=== PATIENT | female | born 1950 | race Caucasian/White ===

== ENCOUNTER 2016-10-13 08:40 | Emergency (ER) | payer MEDICARE, OTHER ==
[~2016-10-13] VITALS: Ht 162.6 cm; Wt 52.2 kg
[~2016-10-13 08:40] MED LIST: ONDANSETRON ODT4 MG PO; SOMA350 MG PO
[2016-10-13 09:00] VITALS: BP 107/88
[2016-10-13] MEDS ORDERED: Bacitracin Oint UD TOPIC ONE (09:15)
[2016-10-13] MEDS ORDERED: Bactrim DS (160mg/800mg) tab ORAL ONE (09:15)
[2016-10-13] MEDS ORDERED: TdaP Vaccine 0.5ml Syr IM ONE (09:15)
--- NOTE | 2016-10-13 09:36 | Emergency Room Report ---
History of Present Illness General Chief Complaint: Upper Respiratory Illness Source: Patient Present Illness [facility] The patient presents with R facial swelling and pain and a cough that's been constant for several weeks. She just returned from the [facility]. She saw her eye doctor who prescribes Augmentin for swelling and redness underneath her right eye. 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 She was suffering from multiple mosquito bites and thinks that this maybe related to mosquito bite. In addition to that she has cramps in her feet and feels is related to poor circulation. The cough is nonproductive. She does not hear herself wheezing. She denies any chest pain. Last year she had an episode of bronchitis last 6 months to year. She has swelling R below eye. PMD prescribed augmentin. Not getting better. She has chronic changes post trauma of R eye. No change in vision. She denies pain. Allergies: Uncoded Allergies: NKA (Allergy, 07/16/12) Patient History Past Medical History: see triage record Pertinent Family History: other - maxillary reconstruction and pelvic fx Social History: Denies: smoking Social History Narrative recent trip to [facility] Reviewed Nursing Documentation: PMH: Agreed, PSxH: Agreed Nursing Documentation-PM Past Medical History: No Stated History Hx Hypertension: Yes Hx Gastrointestinal Problems: Yes - IBS Review of Systems All Other Systems: negative except mentioned in HPI Physical Exam Vital Signs Date Time Temp Pulse Resp B/P Pulse Ox O2 Delivery O2 Flow Rate FiO2 10/13/16 08:54 98.4 80 14 104/74 97 Room Air Sp02 EP Interpretation: reviewed, normal General Appearance: well appearing, no apparent distress, GCS 15 Head: normocephalic Eyes: bilateral eye PERRL, bilateral eye other - r proptosis and facial weakness ENT: moist mucus membranes Neck: supple Respiratory: lungs clear, normal breath sounds Cardiovascular #1: regular rate, rhythm Cardiovascular #2: 2+ radial (R) Gastrointestinal: normal inspection, normal bowel sounds, non tender, no mass, non-distended Musculoskeletal: back normal, gait/station normal, normal range of motion Neurologic: alert, oriented x3, medical claims assistant III-XII nml as tested - R periorbital weakness (chronic) Psychiatric: mood/affect normal Skin: normal inspection, warm/dry, other - R infraorbital swelling with some erythema and min eschar Medical Decision Making Diagnostic Impression: Primary Impression: MRSA (methicillin resistant Staphylococcus aureus) infection Additional Impression: Bronchitis ER Course Patient with 2 problems: R infection below eye and also chronic cough. There is no wheezing and she states she has never used inhaler. Clinically doubt pneumonia, but CXR indicated. Lungs are clear and she has never used bronchodilator (a consideration). Being treated with ineffective antibiotics, will start bactrim and give tetanus. EKG and CXR negative. Labs unremarkable. Sed rate normal. Circulation normal. Patient improved with treatment. If not better, consider bronchodilator. Patient stable for outpatient observation and treatment. Laboratory Tests Test 10/13/16 09:25 White Blood Count 5.6 K/UL (4.8-10.8) Red Blood Count 4.35 M/UL (4.20-5.40) Hemoglobin 15.0 G/DL (12.0-16.0) Hematocrit 41.1 % (37.0-47.0) Mean Corpuscular Volume 95 FL (80-99) Mean Corpuscular Hemoglobin 34.5 PG (27.0-31.0) H Mean Corpuscular Hemoglobin Concent 36.5 G/DL (32.0-36.0) H Red Cell Distribution Width 11.1 % (11.6-14.8) L Platelet Count 287 K/UL (150-450) Mean Platelet Volume 6.2 FL (6.5-10.1) L Neutrophils (%) (Auto) 58.4 % (45.0-75.0) Lymphocytes (%) (Auto) 26.5 % (20.0-45.0) Monocytes (%) (Auto) 12.0 % (1.0-10.0) H Eosinophils (%) (Auto) 1.4 % (0.0-3.0) Basophils (%) (Auto) 1.6 % (0.0-2.0) Erythrocyte Sedimentation Rate 7 MM/HR (0-30) Sodium Level 141 mEQ/L (135-145) Potassium Level 4.5 mEQ/L (3.4-4.9) Chloride Level 98 mEQ/L (98-107) Carbon Dioxide Level 30 mEQ/L (20-30) Anion Gap 13 (5-15) Blood Urea Nitrogen 11 mg/dL (7-23) Creatinine 0.8 mg/dL (0.5-0.9) Estimate Glomerular Filtration Rate > 60 mL/min (>60) Glucose Level 92 mg/dL (74-106) Calcium Level 9.8 mg/dL (8.6-10.2) Magnesium Level 1.9 mg/dL (1.7-2.5) Total Bilirubin 0.6 mg/dL (0.0-1.2) Aspartate Amino Transferase (AST) 25 U/L (5-40) Alanine Aminotransferase (ALT) 14 U/L (3-33) Alkaline Phosphatase 57 U/L (35-104) Total Creatine Kinase 86 U/L (26-140) Troponin I < 0.30 ng/mL (<=0.30) Pro-B-Type Natriuretic Peptide 78 pg/mL (0-125) Total Protein 6.8 g/dL (6.6-8.7) Albumin 4.4 g/dL (3.5-5.2) Globulin 2.4 g/dL Albumin/Globulin Ratio 1.8 (1.0-2.7) EKG Diagnostic Results Rate: normal Rhythm: NSR ST Segments: no acute changes Rhythm Strip Diag. Results EP Interpretation: yes Rhythm: NSR, no PVC's, no ectopy Chest X-Ray Diagnostic Results EP Interpretation: Yes Findings: no consolidation, no effusion, no pneumothorax, no acute cardiopulmonary disease Number of Views: 1 Last Vital Signs Date Time Temp Pulse Resp B/P Pulse Ox O2 Delivery O2 Flow Rate FiO2 10/13/16 11:45 98.4 75 16 110/75 99 Room Air Status: improved Disposition: HOME, SELF-CARE Condition: Improved Scripts Bacitracin (Bacitracin) 28.4 Gm Oint...g. 1 APPLIC TOPIC BID, #10 GM Prov: Berny Lauren M.D. 10/13/16 Trimethoprim/Sulfamethoxazole 160/800* (BACTRIM DS TABLET*) 1 Each Tablet 1 TAB ORAL Q12H, #14 TAB 0 Refills Prov: Berny Lauren M.D. 10/13/16 Berny Lauren M.D. October 13, 2016 09:36
[2016-10-13 09:46] LABS: BASOPHILS % (AUTO) 1.6 % (0.0-2.0); EOSINOPHILS % (AUTO) 1.4 % (0.0-3.0); LYMPHOCYTES % (AUTO) 26.5 % (20.0-45.0); MEAN CORPUSCULAR HEMOGLOBIN 34.5 PG (27.0-31.0); MEAN CORPUSCULAR HGB CONC 36.5 G/DL (32.0-36.0); MEAN CORPUSCULAR VOLUME 95 FL (80-99); MEAN PLATELET VOLUME 6.2 FL (6.5-10.1); NEUTROPHILS % (AUTO) 58.4 % (45.0-75.0); PLATELET COUNT 287 K/UL (150-450); RED BLOOD COUNT 4.35 M/UL (4.20-5.40); RED CELL DISTRIBUTION WIDTH 11.1 % (11.6-14.8); WHITE BLOOD COUNT 5.6 K/UL (4.8-10.8)
[2016-10-13 09:57] LABS: TROPONIN I < 0.30 ng/mL (<=0.30)
[2016-10-13 10:00] LABS: ALANINE AMINOTRANSFERASE 14 U/L (3-33); ALBUMIN/GLOBULIN RATIO 1.8 (1.0-2.7); ANION GAP 13 (5-15); ASPARTATE AMINO TRANSFERASE 25 U/L (5-40); CALCIUM 9.8 mg/dL (8.6-10.2); CARBON DIOXIDE 30 mEQ/L (20-30); CHLORIDE 98 mEQ/L (98-107); CREATININE 0.8 mg/dL (0.5-0.9); GLOMERULAR FILTRATION RATE > 60 mL/min (>60); HEMOLYSIS 7; POTASSIUM 4.5 mEQ/L (3.4-4.9); SODIUM 141 mEQ/L (135-145); TOTAL PROTEIN 6.8 g/dL (6.6-8.7)
--- NOTE | 2016-10-13 10:14 | Diagnostic Imaging Report ---
Indication: Chest Pain Comparison: None A single view chest radiograph was obtained. Findings: Cardiomediastinal appearance is within normal limits for age. Pulmonary vascularity is appropriate. The diaphragmatic contour is smooth and costophrenic angles are sharp. No pleural effusions are identified. The bones are osteopenic. Impression: No acute findings
[2016-10-13 11:30] VITALS: BP 110/75
[2016-10-13] MEDS ORDERED: BACTRIM DS TAB1 EAC1 ORAL (11:36)
[2016-10-13] MEDS ORDERED: BACITRACIN15 GM TOPIC (11:36)
[2016-10-13 11:45] VITALS: BP 110/75
--- NOTE | 2016-10-15 17:04 | Cardiology Report ---
APPROVED REPORT EKG Measurement Heart [id number] Normal sinus rhythm Normal ECG
== END 2016-10-13 11:45 | disposition home or self-care (01) ==
LOC: EMR 10:12
DX: B95.62 Methicillin resistant Staphylococcus aureus infection as the cause of diseases classified elsewhere (principal); H44.001 Unspecified purulent endophthalmitis, right eye; J40 Bronchitis, not specified as acute or chronic; I10 Essential (primary) hypertension; K58.9 Irritable bowel syndrome, unspecified
CPT/HCPCS: 36415; 71010; 80053; 82550; 83735; 83880; 84484; 85025; 85651; 90471; 90715; 93005; 96372; 99284

== ENCOUNTER 2016-10-25 20:17 | Emergency (ER) | payer MEDICARE ==
[~2016-10-25] VITALS: Ht 162.6 cm; Wt 52.2 kg
[~2016-10-25 20:17] MED LIST changes: +BACITRACIN15 GM TOPIC; +BACTRIM DS TAB1 EAC1 ORAL
--- NOTE | 2016-10-25 21:10 | Emergency Room Report ---
History of Present Illness General Chief Complaint: Upper Respiratory Illness Source: Patient Present Illness HPI Is a 66-year-old female with history hypertension. She presents with a cough and spinning of whitish sputum for the last couple months. She was here last week and had workup that was negative. She was placed on antibiotics. Not getting better. Usually occur at night. Occasional cough. No fever or chills. No nausea no vomiting. No chest pain. Has not seen a primary care Dr. Allergies: Coded Allergies: No Known Allergies (Unverified , 10/25/16) Patient History Past Medical History: see triage record, old chart reviewed, HTN Past Surgical History: other Pertinent Family History: none Social History: Denies: smoking Last Menstrual Period: Hysterectomy Now: No Immunizations: other Reviewed Nursing Documentation: PMH: Agreed, PSxH: Agreed Nursing Documentation-PMH Past Medical History: No History, Except For Hx Hypertension: Yes Hx Gastrointestinal Problems: Yes - IBS Review of Systems Eye: Denies: blurred vision, eye pain ENT: Denies: ear pain, nose congestion, throat swelling Respiratory: Denies: cough, shortness of breath Cardiovascular: Denies: chest pain, palpitations Gastrointestinal: Denies: abdominal pain, diarrhea, nausea, vomiting Musculoskeletal: Denies: back pain, joint pain Skin: Denies: rash Neurological: Denies: headache, numbness Endocrine: Denies: increased thirst, increased urine Hematologic/Lymphatic: Denies: easy bruising All Other Systems: negative except mentioned in HPI Physical Exam Vital Signs Date Time Temp Pulse Resp B/P Pulse Ox O2 Delivery O2 Flow Rate FiO2 10/25/16 20:22 98.1 76 16 129/75 100 Room Air vitals normal Sp02 EP Interpretation: reviewed, normal General Appearance: well appearing, no apparent distress, alert Head: normocephalic, atraumatic Eyes: bilateral eye EOMI, bilateral eye PERRL ENT: hearing grossly normal, normal pharynx Neck: full range of motion, supple, no meningismus Respiratory: chest non-tender, lungs clear, normal breath sounds Cardiovascular #1: regular rate, rhythm, no murmur Gastrointestinal: normal bowel sounds, non tender, no mass, no organomegaly, no bruit, non-distended Musculoskeletal: back normal, gait/station normal, normal range of motion Psychiatric: mood/affect normal Skin: warm/dry Medical Decision Making Diagnostic Impression: Primary Impression: Upper respiratory symptom ER Course Patient presents with symptom it may be more allergic than Dr. infection. X- ray of the chest is unremarkable. Labs unremarkable. We'll treat with antihistamine. Chest X-Ray Diagnostic Results Chest X-Ray Ordered: No Last Vital Signs Date Time Temp Pulse Resp B/P Pulse Ox O2 Delivery O2 Flow Rate FiO2 10/25/16 20:38 76 16 Room Air 10/25/16 20:22 98.1 129/75 100 Status: unchanged Disposition: HOME, SELF-CARE Condition: Stable Scripts Loratadine (CLARITIN) 10 Mg Tablet 10 MG ORAL DAILY, #30 TAB Prov: LEONELA AGUIRRE M.D. 10/25/16 Additional Instructions: Followup with your doctor 7 days. You may need a referral to see a specialist. Return if symptom worsen. LEONELA AGUIRRE M.D. Oct 25, 2016 21:10
[2016-10-25] MEDS ORDERED: CLARITIN10 MG ORAL (21:13)
[2016-10-25 21:17] VITALS: BP 129/75
== END 2016-10-25 21:17 | disposition home or self-care (01) ==
LOC: EMR 20:35
DX: J06.9 Acute upper respiratory infection, unspecified (principal); I10 Essential (primary) hypertension
CPT/HCPCS: 99283

== ENCOUNTER 2016-12-21 22:16 | Emergency (ER) | payer MEDICARE ==
[~2016-12-21] VITALS: Ht 162.6 cm; Wt 52.2 kg
[~2016-12-21 22:16] MED LIST changes: +CLARITIN10 MG ORAL
[2016-12-21] MEDS ORDERED: VIBRAMYCIN100 MG ORAL (22:35)
[2016-12-21 23:26] VITALS: BP_SYST 133; BP_SYST 141; BP_DIAS 82; BP_DIAS 89
--- NOTE | 2016-12-22 00:16 | Emergency Room Report ---
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 States nothing acute as far as "pus drainage" but shows me clear fluid drainage from eye on tissue paper Denies blurry, change of vision, headache, pain with EOMI, redness around eye Has been here multiple times for previous Was given Bactrim in september by ERMD Allergies: Coded Allergies: No Known Allergies (Unverified , 10/25/16) Patient History Past Medical History: see triage record Past Surgical History: other - "eye surgery" Pertinent Family History: none Social History: Denies: alcohol use, drug use, smoking Now: No Immunizations: UTD Reviewed Nursing Documentation: PMH: Agreed, PSxH: Agreed Nursing Documentation-PMH Past Medical History: No History, Except For Hx Hypertension: Yes Hx Gastrointestinal Problems: Yes - IBS Review of Systems All Other Systems: negative except mentioned in HPI Physical Exam Vital Signs Date Time Temp Pulse Resp B/P Pulse Ox O2 Delivery O2 Flow Rate FiO2 12/21/16 22:29 97.9 76 16 133/89 100 Room Air Sp02 EP Interpretation: reviewed, normal General Appearance: normal inspection, well appearing, no apparent distress, alert, GCS 15, non-toxic Head: normocephalic, atraumatic Eyes: bilateral eye PERRL, bilateral eye other - Obvious post-op changes to right eye: there is an obvious lag of movement of right eye on eye movement. There is some proptosis and deformity of right orbit. Clear fluid expressed from a post-op wound site? below right eye, that is forcibly expressed by patient pushing on it. No erythema or orbit. ENT: normal ENT inspection, hearing grossly normal, normal voice Neck: normal inspection, full range of motion, supple, no bony tend Respiratory: normal inspection, lungs clear, normal breath sounds, no respiratory distress, no retraction, no wheezing Cardiovascular #1: regular rate, rhythm, no edema Gastrointestinal: normal inspection, normal bowel sounds, non tender, soft, no guarding, no hernia Genitourinary: no CVA tenderness Musculoskeletal: normal inspection, back normal, normal range of motion, Kasie' s Sign negative Neurologic: normal inspection, alert, oriented x3, responsive, emergency medicine medical director III-XII nml as tested, motor strength/tone normal, speech normal Psychiatric: normal inspection, judgement/insight normal, mood/affect normal Skin: normal inspection, normal color, no rash Medical Decision Making Diagnostic Impression: Primary Impression: Referral needed Additional Impression: Eye problem ER Course Chronic right eye infection? - VSS. Afebrile. - No acute vision changes - Low suspicion for orbital cellulitis as vitals stable, afebrile, no pain with EOM, patient has had this for years - Already on Doxy by ID - Already being evaluated by Opth[facility] - Encouraged compliance with Doxy - Also requesting PMD referral which was given DC home Last Vital Signs Date Time Temp Pulse Resp B/P Pulse Ox O2 Delivery O2 Flow Rate FiO2 12/21/16 23:26 97.9 63 16 141/82 100 Room Air Status: improved Disposition: HOME, SELF-CARE Condition: Improved Additional Instructions: - Continue taking Doxycycline as prescribed by infectious disease specialist - Call Dr Ragland for primary care referral JASWANT KLEIN M.D. Dec 22, 2016 00:16
== END 2016-12-21 23:27 | disposition home or self-care (01) ==
LOC: EMR 22:52
DX: H57.8 Other specified disorders of eye and adnexa (principal); I10 Essential (primary) hypertension
CPT/HCPCS: 99282

== ENCOUNTER 2017-07-03 22:19 | Emergency (ER) | payer MEDICARE ==
[~2017-07-03] VITALS: Ht 160 cm; Wt 53.1 kg
[~2017-07-03 22:19] MED LIST changes: +VIBRAMYCIN100 MG ORAL
[2017-07-03 22:35] VITALS: BP 127/68
[2017-07-03] MEDS ORDERED: Albuterol/Ipratropium 3ml neb HHN ONE (23:00)
[2017-07-03 23:15] VITALS: BP 128/72
--- NOTE | 2017-07-03 23:17 | Emergency Room Report ---
History of Present Illness General Chief Complaint: Flu Like Symptoms Source: Patient Present Illness HPI Is a 66-year-old female with no past medical history. She presents with chief complaint of feeling sick with coughing congestion since May. We'll get better and it back again. Coughing is to of phlegm. She went to urgent care a month ago and given cough medicine is not helping. No fever or chills. No nausea no vomiting. Does have congestion and hoarseness of her voice. She's not a smoker. Allergies: Coded Allergies: No Known Allergies (Unverified , 10/25/16) Patient History Past Medical History: see triage record, old chart reviewed Past Surgical History: other Social History: Reports: smoking Last Menstrual Period: NA Now: No Immunizations: other Reviewed Nursing Documentation: PMH: Agreed, PSxH: Agreed Nursing Documentation-PMH Hx Hypertension: Yes Hx Gastrointestinal Problems: Yes - IBS Review of Systems Eye: Denies: eye pain, blurred vision ENT: Reports: nose congestion, Denies: ear pain, throat swelling Respiratory: Reports: cough, shortness of breath Cardiovascular: Denies: chest pain, palpitations Gastrointestinal: Denies: abdominal pain, diarrhea, nausea, vomiting Musculoskeletal: Denies: back pain, joint pain Skin: Denies: rash Neurological: Denies: headache, numbness Endocrine: Denies: increased thirst, increased urine Hematologic/Lymphatic: Denies: easy bruising All Other Systems: negative except mentioned in HPI Physical Exam Vital Signs Date Time Temp Pulse Resp B/P (MAP) Pulse Ox O2 Delivery O2 Flow Rate FiO2 07/03/17 22:29 98.2 85 20 132/86 99 Room Air 98.2 07/03/17 22:59 21 vitals normal Sp02 EP Interpretation: reviewed, normal General Appearance: well appearing, no apparent distress, alert Head: normocephalic, atraumatic Eyes: bilateral eye PERRL, bilateral eye EOMI ENT: hearing grossly normal, normal pharynx Neck: full range of motion, supple, no meningismus Respiratory: chest non-tender, lungs clear, normal breath sounds, other - coughing with inspiration Cardiovascular #1: regular rate, rhythm, no murmur Gastrointestinal: normal bowel sounds, non tender, no mass, no organomegaly, no bruit, non-distended Musculoskeletal: back normal, gait/station normal, normal range of motion Psychiatric: mood/affect normal Skin: warm/dry Medical Decision Making Diagnostic Impression: Primary Impression: Upper respiratory infection Qualified Codes: J06.9 - Acute upper respiratory infection, unspecified Additional Impression: Atypical pneumonia ER Course Patient present with an upper respiratory infection his been ongoing for about a month now. She may have an atypical pneumonia. Probably initially started as a viral infection that was secondary bacterial infection. We'll discharge home with antibiotics. She felt better after breathing treatment. Chest X-Ray Diagnostic Results Chest X-Ray Diagnostic Results : Chest X-Ray Ordered: Yes # of Views/Limited/Complete: 1 View Indication: Shortness of Breath EP Interpretation: Yes Interpretation: no consolidation, no effusion, no pneumothorax, no acute cardiopulmonary disease Impression: No acute disease Electronically Signed by: Real Henderson MD Last Vital Signs Date Time Temp Pulse Resp B/P (MAP) Pulse Ox O2 Delivery O2 Flow Rate FiO2 07/03/17 22:59 80 22 100 Room Air 21 07/03/17 22:35 98.5 127/68 98.5 Status: improved Disposition: HOME, SELF-CARE Condition: Stable Scripts Azithromycin* (ZITHROMAX*) 250 Mg Tablet 250 MG ORAL DAILY, #6 TAB 0 Refills Take two tablets by mouth today, then take one tablet by mouth daily for four days Prov: REAL HENDERSON M.D. 07/03/17 Prednisone* (PREDNISONE*) 20 Mg Tablet 60 MG ORAL DAILY, #12 TAB Prov: REAL HENDERSON M.D. 07/03/17 Albuterol Sulfate* (ALBUTEROL SULFATE MDI*) 8.5 Gm Hfa.aer.ad 2 PUFF INH Q4H Y for cough/wheezing, #1 EA 0 Refills Prov: REAL HENDERSON M.D. 07/03/17 Additional Instructions: Followup with your DrLashonda in 7 days. Return if worse. REAL HENDERSON M.D. Jul 03, 2017 23:16
[2017-07-03] MEDS ORDERED: PREDNISONE20 MG ORAL (23:20)
[2017-07-03] MEDS ORDERED: ALBUTEROL SULF8.5 GM INH (23:20)
[2017-07-03] MEDS ORDERED: AZITHROMYCIN250 MG ORAL (23:20)
[2017-07-03 23:28] VITALS: BP 128/72
--- NOTE | 2017-07-04 11:02 | Diagnostic Imaging Report ---
Indication: Dyspnea Comparison: 10/13/2016 A single view chest radiograph was obtained. Findings: Cardiomediastinal appearance is within normal limits for age. Pulmonary vascularity is appropriate. The diaphragmatic contour is smooth and costophrenic angles are sharp. No pleural effusions are identified. The bones are osteopenic. Impression: No acute findings
== END 2017-07-03 23:30 | disposition home or self-care (01) ==
LOC: EMR 23:25
DX: J18.9 Pneumonia, unspecified organism (principal); J06.9 Acute upper respiratory infection, unspecified; I10 Essential (primary) hypertension; K58.9 Irritable bowel syndrome, unspecified; F17.200 Nicotine dependence, unspecified, uncomplicated
CPT/HCPCS: 71045; 94640; 99284; J7512; J7620

== ENCOUNTER 2017-08-03 06:39 | Emergency (ER) | payer MEDICARE ==
[~2017-08-03] VITALS: Ht 160 cm; Wt 54.4 kg
[~2017-08-03 06:39] MED LIST changes: +ALBUTEROL SULF8.5 GM INH; +AZITHROMYCIN250 MG ORAL; +PREDNISONE20 MG ORAL
--- NOTE | 2017-08-03 06:55 | Emergency Room Report ---
History of Present Illness General Chief Complaint: Chest Pain Source: Patient Present Illness HPI Patient is 67-year-old female presented after increased cough. The patient recently finished a course of antibiotics.The patient reported having intermittent pain which she describes as a pressure sensation. She had associated cough. She reports having increased nasal congestion. She denies smoking. She reports having a generalized weakness. Allergies: Coded Allergies: No Known Allergies (Unverified , 10/25/16) Patient History Past Medical History: see triage record Nursing Documentation-PMH Hx Hypertension: Yes Hx Gastrointestinal Problems: Yes - IBS Review of Systems All Other Systems: negative except mentioned in HPI Physical Exam Vital Signs Date Time Temp Pulse Resp B/P (MAP) Pulse Ox O2 Delivery O2 Flow Rate FiO2 08/03/17 06:43 97.7 75 16 136/83 98 Room Air 97.7 Sp02 EP Interpretation: reviewed, normal General Appearance: normal inspection, well appearing, no apparent distress, alert, GCS 15 Head: atraumatic Eyes: bilateral eye other - disconjugate gaze left eye ptosis ENT: normal ENT inspection, hearing grossly normal, normal voice Neck: normal inspection, full range of motion, supple, no bony tend Respiratory: normal inspection, no respiratory distress, no retraction, speaking full sentences, wheezing Cardiovascular #1: regular rate, rhythm, no edema Gastrointestinal: normal inspection, normal bowel sounds, non tender, soft, no guarding, no hernia Genitourinary: no CVA tenderness Musculoskeletal: normal inspection, back normal, normal range of motion Neurologic: normal inspection, alert, oriented x3, responsive, garment form assembler III-XII nml as tested, speech normal Psychiatric: normal inspection, judgement/insight normal, mood/affect normal Skin: normal inspection, normal color, no rash Medical Decision Making Diagnostic Impression: Primary Impression: Generalized weakness Additional Impression: Hyperbilirubinemia ER Course Patient presented for chest pain. Differential diagnosis included but was not limited to acute coronary syndrome, pulmonary embolism, pneumonia, aortic dissection, shingles, pneumothorax, aortic dissection, esophageal rupture, pericarditis. Patient recent diagnosis of pneumonia.Laboratory testing was notable for elevated bilirubin level. The patient was noted to have negative troponin as well as normal B-type natriuretic peptide. Chest x-ray was unremarkable. The patient denies any leg pain or swelling. She denies any exertional dyspnea. CT of abdomen and pelvis was ordered to evaluate for possible pancreatic head mass.CT of the abdomen pelvis read by radiology showed multiple liver cysts without any evidence of acute obstruction there is questionable hiatal hernia. The patient declined admission for further workup of chest pain. The patient was advised to follow-up with primary care physician for further evaluation of elevated monocyte count. She advised that she needed further outpatient workup including cardiology. The patient is advised to follow up with primary care doctor in 1-2 days. Patient is advised to return if any worsening condition or if any changes in status that are concerning. This report is dictated with [employer] sales order clerk software which may occasionally lead to discrepancies related to use of this software. Labs Test 08/03/17 07:00 White Blood Count 5.9 K/UL (4.8-10.8) Red Blood Count 4.83 M/UL (4.20-5.40) Hemoglobin 15.5 G/DL (12.0-16.0) Hematocrit 45.5 % (37.0-47.0) Mean Corpuscular Volume 94 FL (80-99) Mean Corpuscular Hemoglobin 32.0 PG (27.0-31.0) Mean Corpuscular Hemoglobin Concent 34.0 G/DL (32.0-36.0) Red Cell Distribution Width 11.4 % (11.6-14.8) Platelet Count 298 K/UL (150-450) Mean Platelet Volume 6.5 FL (6.5-10.1) Neutrophils (%) (Auto) 49.4 % (45.0-75.0) Lymphocytes (%) (Auto) 32.0 % (20.0-45.0) Monocytes (%) (Auto) 13.1 % (1.0-10.0) Eosinophils (%) (Auto) 4.0 % (0.0-3.0) Basophils (%) (Auto) 1.6 % (0.0-2.0) Sodium Level 143 MMOL/L (136-145) Potassium Level 4.3 MMOL/L (3.5-5.1) Chloride Level 107 MMOL/L (98-107) Carbon Dioxide Level 31 MMOL/L (21-32) Anion Gap 5 mmol/L (5-15) Blood Urea Nitrogen 13 mg/dL (7-18) Creatinine 0.9 MG/DL (0.55-1.30) Estimat Glomerular Filtration Rate > 60 mL/min (>60) Glucose Level 109 MG/DL (74-106) Calcium Level 8.9 MG/DL (8.5-10.1) Total Bilirubin 1.9 MG/DL (0.2-1.0) Direct Bilirubin 0.3 MG/DL (0.0-0.3) Aspartate Amino Transf (AST/SGOT) 26 U/L (15-37) Alanine Aminotransferase (ALT/SGPT) 32 U/L (12-78) Alkaline Phosphatase 67 U/L (46-116) Total Creatine Kinase 143 U/L (26-308) Creatine Kinase MB 2.0 NG/ML (0.0-3.6) Creatine Kinase MB Relative Index 1.3 Troponin I 0.000 ng/mL (0.000-0.056) Pro-B-Type Natriuretic Peptide 25 pg/mL (0-125) Total Protein 7.0 G/DL (6.4-8.2) Albumin 3.8 G/DL (3.4-5.0) Globulin 3.2 g/dL Albumin/Globulin Ratio 1.2 (1.0-2.7) EKG Diagnostic Results Rate: normal - 73 Rhythm: NSR ST Segments: no acute changes Rhythm Strip Diag. Results EP Interpretation: yes Rhythm: NSR, no PVC's, no ectopy Last Vital Signs Date Time Temp Pulse Resp B/P (MAP) Pulse Ox O2 Delivery O2 Flow Rate FiO2 08/03/17 06:43 97.7 75 16 136/83 98 Room Air 97.7 Status: improved Disposition: HOME, SELF-CARE Condition: Stable Scripts Prednisone* (PREDNISONE*) 20 Mg Tablet 40 MG ORAL DAILY, #10 TAB Prov: Pedro Pablo Sheridan 08/03/17 Albuterol Sulfate* (ALBUTEROL SULFATE MDI*) 8.5 Gm Hfa.aer.ad 2 PUFF INH Q4H Y for cough/wheezing, #1 EA 0 Refills Prov: Pedro Pablo Sheridan 08/03/17 Pedro Pablo Sheridan Aug 03, 2017 06:55
[2017-08-03] MEDS ORDERED: Albuterol/Ipratropium 3ml neb HHN ONE (07:00)
[2017-08-03] MEDS ORDERED: Albuterol ud Inhalation HHN ONE (07:00)
[2017-08-03] MEDS ORDERED: Sodium Chloride 500ML 500 ML IV ONE (07:00)
[2017-08-03] MEDS ORDERED: Ipratropium 0.02% Inh Soln 2.5ml UD HHN ONE (07:00)
[2017-08-03 07:26] LABS: BASOPHILS % (AUTO) 1.6 % (0.0-2.0); HEMATOCRIT 45.5 % (37.0-47.0); HEMOGLOBIN 15.5 G/DL (12.0-16.0); MEAN CORPUSCULAR VOLUME 94 FL (80-99); MONOCYTES % (AUTO) 13.1 % (1.0-10.0); NEUTROPHILS % (AUTO) 49.4 % (45.0-75.0); PLATELET COUNT 298 K/UL (150-450); RED BLOOD COUNT 4.83 M/UL (4.20-5.40); RED CELL DISTRIBUTION WIDTH 11.4 % (11.6-14.8); WHITE BLOOD COUNT 5.9 K/UL (4.8-10.8)
[2017-08-03 07:31] VITALS: BP 124/78
[2017-08-03 07:34] LABS: ANION GAP 5 mmol/L (5-15); BLOOD UREA NITROGEN 13 mg/dL (7-18); CALCIUM 8.9 MG/DL (8.5-10.1); CARBON DIOXIDE 31 MMOL/L (21-32); CHLORIDE 107 MMOL/L (98-107); CREATININE 0.9 MG/DL (0.55-1.30); POTASSIUM 4.3 MMOL/L (3.5-5.1); SODIUM 143 MMOL/L (136-145)
[2017-08-03 07:50] LABS: ALANINE AMINOTRANSFERASE 32 U/L (12-78); ALBUMIN 3.8 G/DL (3.4-5.0); ALBUMIN/GLOBULIN RATIO 1.2 (1.0-2.7); ALKALINE PHOSPHATASE 67 U/L (46-116); ASPARTATE AMINO TRANSFERASE 26 U/L (15-37); BILIRUBIN,DIRECT 0.3 MG/DL (0.0-0.3); BILIRUBIN,TOTAL 1.9 MG/DL (0.2-1.0); CREATINE KINASE 143 U/L (26-308)
[2017-08-03] MEDS ORDERED: ALBUTEROL SULF8.5 GM INH (08:48)
[2017-08-03] MEDS ORDERED: PREDNISONE20 MG ORAL (08:48)
--- NOTE | 2017-08-03 09:40 | Diagnostic Imaging Report ---
Clinical Indication: Abdominal pain Technique: No oral contrast utilized, per emergency room physician request IV administration nonionic contrast. Venous phase spiral acquisition obtained through the abdomen and pelvis. Multiplanar reconstructions were generated. Total dose length product 625.92 mGycm. CTDIvol(s) 12.57 mGy. Dose reduction achieved using automated exposure control Comparison: none Findings: Lack of enteric contrast administration limits assessment of the GI tract. The appendix is normal. There is no evidence of diverticulosis or diverticulitis. No small bowel distention. No free or loculated intraperitoneal air or fluid is evident. There is questionably a small sliding-type hiatal hernia. The distal esophagus and stomach are otherwise unremarkable. The duodenum is unremarkable. 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 5 mm low-attenuation lesion is seen in segment 7 of the liver near the dome. The liver is otherwise unremarkable. The gallbladder, bile ducts, pancreas, spleen,, adrenals, kidneys are all unremarkable. The uterus is not visualized, presumed surgically absent. The bones demonstrate degenerative spondylosis changes. Impression: No acute abnormality Subcentimeter low-attenuation lesion in the liver, too small to characterize, most likely benign simple cysts or bile hamartomas. 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
[2017-08-03 10:13] VITALS: BP 124/78
--- NOTE | 2017-08-03 11:10 | Diagnostic Imaging Report ---
Indication: Shortness of breath Technique: One view of the chest Comparison: 07/03/2017 Findings: Lungs and pleural spaces are clear. Heart size is normal . No significant change Impression: No acute process
--- NOTE | 2017-08-05 20:14 | Cardiology Report ---
APPROVED REPORT EKG Measurement Heart [id number] Normal sinus rhythm Low voltage QRS Septal infarct, age undetermined Abnormal ECG
== END 2017-08-03 10:14 | disposition home or self-care (01) ==
LOC: EMR 07:08
DX: E80.6 Other disorders of bilirubin metabolism (principal); R53.1 Weakness; R07.9 Chest pain, unspecified; I10 Essential (primary) hypertension; K58.9 Irritable bowel syndrome, unspecified; K76.89 Other specified diseases of liver
CPT/HCPCS: 36415; 71045; 74177; 80053; 82248; 82550; 82553; 83880; 84484; 85025; 93005; 94640; 96374; 99284; J7040; Q9967

== ENCOUNTER 2018-05-25 02:01 | Emergency (ER) | payer MEDICARE ==
[~2018-05-25] VITALS: Ht 160 cm; Wt 52.2 kg
[2018-05-25 02:10] VITALS: BP 114/80
[2018-05-25] MEDS ORDERED: NKM (02:10)
--- NOTE | 2018-05-25 02:10 | NUR ---
ED Nurse Note: Patient presents to ED c/o flu like symptoms for 1x week. Patient reports weakness and headache 08/25. Pt AO4. NAD. VSS. Attached to monitor.
--- NOTE | 2018-05-25 02:49 | Emergency Room Report ---
History of Present Illness General Chief Complaint: Flu Like Symptoms Source: Patient Present Illness HPI Is a 67-year-old female with no past medical history. She presents with chief complaint of flulike illness. Onset for the last 10 days. [place] weak and tired. No nausea no vomiting. No fever chills. Does have symptoms slight cough and congestion. Does have some runny nose. Denies any other complaint. No chest pain. No abdominal pain. Allergies: Coded Allergies: No Known Allergies (Unverified , 10/25/16) Patient History Past Medical History: see triage record, old chart reviewed Past Surgical History: other Pertinent Family History: none Social History: Denies: smoking Last Menstrual Period: koko Now: No Immunizations: other Reviewed Nursing Documentation: PMH: Agreed; PSxH: Agreed Nursing Documentation-PMH Past Medical History: No History, Except For Hx Hypertension: Yes Hx Gastrointestinal Problems: Yes - IBS Review of Systems Constitutional: Reports: malaise Eye: Denies: eye pain, blurred vision ENT: Denies: ear pain, nose congestion, throat swelling Respiratory: Reports: cough; Denies: shortness of breath Cardiovascular: Denies: chest pain, palpitations Gastrointestinal: Denies: abdominal pain, diarrhea, nausea, vomiting Musculoskeletal: Denies: back pain, joint pain Skin: Denies: rash Neurological: Denies: headache, numbness Endocrine: Denies: increased thirst, increased urine Hematologic/Lymphatic: Denies: easy bruising All Other Systems: negative except mentioned in HPI Physical Exam Vital Signs Date Time Temp Pulse Resp B/P (MAP) Pulse Ox O2 Delivery O2 Flow Rate FiO2 05/25/18 02:06 98.2 81 14 114/80 97 Room Air vitals normal Sp02 EP Interpretation: reviewed, normal General Appearance: well appearing, no apparent distress, alert Head: normocephalic, atraumatic Eyes: bilateral eye PERRL, bilateral eye EOMI ENT: hearing grossly normal, normal pharynx Neck: full range of motion, supple, no meningismus Respiratory: chest non-tender, lungs clear, normal breath sounds Cardiovascular #1: regular rate, rhythm, no murmur Gastrointestinal: normal bowel sounds, non tender, no mass, no organomegaly, no bruit, non-distended Musculoskeletal: back normal, gait/station normal, normal range of motion Psychiatric: mood/affect normal Skin: warm/dry Medical Decision Making Diagnostic Impression: Primary Impression: Acute viral syndrome ER Course Patient with symptoms consistent with a viral illness. No evidence of any bacterial infection. Chest x-rays clear. No need for antibiotics. We'll discharge home. Last Vital Signs Date Time Temp Pulse Resp B/P (MAP) Pulse Ox O2 Delivery O2 Flow Rate FiO2 05/25/18 02:06 98.2 81 14 114/80 97 Room Air Status: improved Disposition: HOME, SELF-CARE Condition: Stable Scripts Ibuprofen* (MOTRIN*) 600 Mg Tablet 600 MG ORAL THREE TIMES A DAY, #30 TAB 0 Refills Prov: Real Henderson MD 05/25/18 Additional Instructions: Increase fluids. Follow-up with your doctor in 7 days. Return if worse. Real Henderson MD May 25, 2018 02:49
--- NOTE | 2018-05-25 03:00 | NUR ---
ED Nurse Note: IV access established. Blood and urine collected; sent down to lab.
[2018-05-25 03:08] LABS: APPEARANCE,URINE CLEAR; BILIRUBIN, URINE NEGATIVE (NEGATIVE); COLOR,URINE PALE YELLOW; GLUCOSE, URINE (UA) NEGATIVE (NEGATIVE); KETONES,URINE NEGATIVE (NEGATIVE); LEUKOCYTE ESTERASE ,URINE NEGATIVE (NEGATIVE); NITRITE,URINE NEGATIVE (NEGATIVE); PH,URINE 6 (4.5-8.0); PROTEIN,URINE NEGATIVE (NEGATIVE); UROBILINOGEN,URINE NORMAL MG/DL (0.0-1.0)
[2018-05-25 03:12] LABS: BASOPHILS % (AUTO) 1.6 % (0.0-2.0); EOSINOPHILS % (AUTO) 3.3 % (0.0-3.0); HEMATOCRIT 39.2 % (37.0-47.0); HEMOGLOBIN 13.5 G/DL (12.0-16.0); LYMPHOCYTES % (AUTO) 28.7 % (20.0-45.0); MEAN CORPUSCULAR VOLUME 95 FL (80-99); MONOCYTES % (AUTO) 14.3 % (1.0-10.0); NEUTROPHILS % (AUTO) 52.1 % (45.0-75.0); PLATELET COUNT 250 K/UL (150-450); RED BLOOD COUNT 4.13 M/UL (4.20-5.40); RED CELL DISTRIBUTION WIDTH 10.8 % (11.6-14.8); WHITE BLOOD COUNT 5.4 K/UL (4.8-10.8)
[2018-05-25 03:18] LABS: ANION GAP 9 mmol/L (5-15); BLOOD UREA NITROGEN 13 mg/dL (7-18); CALCIUM 8.6 MG/DL (8.5-10.1); CARBON DIOXIDE 27 MMOL/L (21-32); CHLORIDE 105 MMOL/L (98-107); CREATININE 0.8 MG/DL (0.55-1.30); POTASSIUM 3.7 MMOL/L (3.5-5.1); SODIUM 140 MMOL/L (136-145)
[2018-05-25] MEDS ORDERED: IBUPROFEN600 MG ORAL (03:38)
[2018-05-25] MEDS ORDERED: Tetanus/Diptheria/Pertussis Vaccine 0.5ml Syr IM ONE (04:15)
[2018-05-25 04:20] VITALS: BP 114/80
--- NOTE | 2018-05-25 04:20 | NUR ---
ED Nurse Note: Patient cleared for discharge per ERMD. AO4. NAD. VSS. Patient given prescriptions and discharge instructions; verbalized understanding. IV and ID band removed. Patient ambulated out with all personal belongings with steady gait.
--- NOTE | 2018-05-25 12:58 | Diagnostic Imaging Report ---
Indication: Cough Comparison: 08/03/2017 A single view chest radiograph was obtained. Findings: Cardiomediastinal appearance is within normal limits for age. The lungs are clear. Pulmonary vascularity is appropriate. The diaphragmatic contour is smooth and costophrenic angles are sharp. No pleural effusions are identified. The bones are unremarkable. Impression: No acute findings
== END 2018-05-25 04:20 | disposition home or self-care (01) ==
LOC: EMR 02:30
DX: B34.9 Viral infection, unspecified (principal); Z23 Encounter for immunization; I10 Essential (primary) hypertension
CPT/HCPCS: 36415; 71045; 80048; 81001; 85025; 90471; 90715; 96360; 99284